=== PATIENT | female | born 1945 | race Asian ===

== ENCOUNTER 2021-12-25 12:36 | Emergency (ER) | payer OTHER ==
[~2021-12-25] VITALS: Ht 152.4 cm; Wt 52.2 kg
[2021-12-25 12:40] VITALS: BP_SYST 147
[2021-12-25 13:36] VITALS: BP_SYST 147
== END 2021-12-25 13:36 | disposition home or self-care (01) ==
LOC: SED 12:36
DX: T17.228A Food in pharynx causing other injury, initial encounter (principal); Z88.1 Allergy status to other antibiotic agents; Z88.8 Allergy status to other drugs, medicaments and biological substances; Z79.899 Other long term (current) drug therapy; W45.8XXA Other foreign body or object entering through skin, initial encounter; Y93.89 Activity, other specified; Y92.89 Other specified places as the place of occurrence of the external cause; Y99.8 Other external cause status
CPT/HCPCS: 99284